=== PATIENT | male | born 1995 | race Caucasian/White ===

== ENCOUNTER 2017-07-09 19:51 | Emergency (ER) | payer OTHER ==
[2017-07-09 19:59] VITALS: BP 134/81; PULSE 92; TEMP 98.3; BMI 40.1
[2017-07-09] MEDS ORDERED: DIPHTH,PERTUSS(ACELL),TET 0.5 ML DISP.SYRIN IM ONE (21:47)
[2017-07-09] MEDS ORDERED: CIPROFLOXACIN 500 MG TABLET (RESTRICTED TO ID) PO ONE (21:48)
[2017-07-09] MEDS ORDERED: IBUPROFEN 400 MG TABLET (FP) PO ONE ×2 (21:49→21:52)
--- NOTE | 2017-07-09 22:15 | PDOC ---
History of Present Illness - General Chief Complaint: Puncture Wound Stated Complaint: FOOT INJRUY Time Seen by Provider: 07/09/17 21:10 - History of Present Illness Initial Comments: 07/09/17 21:50 CHIEF COMPLAINT: HISTORY OF PRESENT ILLNESS: 21 yo M with no PMH presents to fast track with puncture wound to L foot. Patient states he was moving something heavy with his friend when his slipped fell off his foot and he stepped onto a screw "with a bolt on it." Patient states the incident happened about an hour prior to arrival and that No recent travel or sick contacts. PAST MEDICAL HISTORY: Denies past medical history FAMILY HISTORY: Denies SOCIAL HISTORY: Denies tobacco, alcohol, illicit drug use. SURGICAL HISTORY: Denies ALLERGIES: No known drug allergies REVIEW OF SYSTEMS General/Constitutional: Denies fever or chills. Denies weakness, weight change. HEENT: Denies change in vision. Denies ear pain or discharge. Denies sore throat. Cardiovascular: Denies chest pain or shortness of breath. Respiratory: Denies cough, wheezing, or hemoptysis. Gastrointestinal: Denies nausea, vomiting, diarrhea or constipation. Denies rectal bleeding. Genitourinary: Denies dysuria, frequency, or change in urination. Musculoskeletal: Denies joint or muscle swelling or pain. Denies neck or back pain. Skin and breasts: "I stepped on a screw." PHYSICAL EXAM General Appearance: Well-appearing, appropriately dressed. No apparent distress , no intoxication. HEENT: EOMI, PERRLA, normal ENT inspection, normal voice, TMs normal, pharynx normal. No conjunctival pallor. No photophobia, scleral icterus. Neck: Supple. Trachea midline. No tenderness, rigidity, carotid bruit, stridor , lymphadenopathy, or thyromegaly. Respiratory/Chest: Lungs CTAB. No shortness of breath, chest tenderness, respiratory distress, accessory muscle use. No crackles, rales, rhonchi, stridor , wheezing, dullness Cardiovascular: RRR. S1, S2. No JVD, murmur, bradycardia, tachycardia. Vascular Pulses: Dorsalis-Pedis (R): 2+, Dorsalis-Pedis (L): 2+ Gastrointestinal/Abdominal: Normal bowel sounds. Abdomen soft, non-distended. No tenderness or rebound tenderness. No organomegaly, pulsatile mass, guarding , hernia, hepatomegaly, splenomegaly. Lymphatic: No adenopathy, tenderness. Musculoskeletal/Extremities: Normal inspection. FROM of all extremities, normal capillary refill. Pelvis Stable. No CVA tenderness. No tenderness to extremities, pedal edema, swelling, erythema or deformity. Integumentary: PUncture wound to left heel. Appropriate color, dry, warm. No cyanosis, erythema, jaundice or rash Neurologic: chairperson anesthesiology II-XII intact. Fully oriented, alert. Appropriate mood/affect. Motor strength 5/5. No appreciable EOM palsy, facial droop or sensory deficit. Past History - Past Medical History Allergies/Adverse Reactions: Allergies Allergy/AdvReac Type Severity Reaction Status Date / Time No Known Allergies Allergy Verified 07/09/17 19:59 Home Medications: Ambulatory Orders Ciprofloxacin [Cipro (Restricted To Id)] 250 mg PO Q12H #20 tablet 07/09/17 Ciprofloxacin [Cipro (Restricted To Id)] 500 mg PO Q12H #20 tablet 07/09/17 - Psycho/Social/Smoking Cessation Hx Suicidal Ideation: No Smoking History: Current every day smoker Have you smoked in the past 12 months: No Number of Cigarettes Smoked Daily: 5 Information on smoking cessation initiated: No Hx Alcohol Use: No Drug/Substance Use Hx: No *Physical Exam - Vital Signs Last Vital Signs Temp Pulse Resp BP Pulse Ox 98.3 F 92 H 18 134/81 100 07/09/17 19:57 07/09/17 19:57 07/09/17 19:57 07/09/17 19:57 07/09/17 19:57 ED Treatment Course - RADIOLOGY Radiology Studies Ordered: Category Date Time Status FOOT-LEFT [RAD] Stat Radiology 07/09/17 21:20 Taken Medical Decision Making - Medical Decision Making 07/09/17 22:15 21 yo M with no PMH presents to fast track with puncture wound to L foot. -X-ray left foot r/o foreign body -TDap IM -Cipro 500 mg po X-ray negative for foreign body Cipro rx sent to pharm Irrigated puncture wound with high pressure saline. Covered with xeroform dressing and kerlix gauze. Advised patient to take medications as prescribed and of signs and symptoms for return to ER; patient verbalized understanding and agrees to plan. 07/09/17 22:21 *DC/Admit/Observation/Transfer Diagnosis at time of Disposition: Puncture wound of foot Qualifiers: Encounter type: initial encounter Laterality: left Qualified Code(s): S91.332A - Puncture wound without foreign body, left foot, initial encounter - Discharge Dispostion Condition at time of disposition: Fair Admit: No - Prescriptions Prescriptions: Ciprofloxacin [Cipro (Restricted To Id)] 250 mg PO Q12H #20 tablet Ciprofloxacin [Cipro (Restricted To Id)] 500 mg PO Q12H #20 tablet - Referrals Referrals: Annie Weir MD [Primary Care Provider] - - Patient Instructions Printed Discharge Instructions: DI for Puncture Wound Additional Instructions: Please take medications as prescribed. Follow up with your primary care doctor by the end of next week. If you develop redness, swelling, warmth, or pain to the site of your injury, or you develop fever, chills, nausea, vomiting, or diarrhea, please return to the ER.
== END 2017-07-09 22:21 | disposition left against medical advice (07) ==
LOC: JERFT 19:51 → SUPCPDRO 19:51 → JERFT 22:21
DX: Z53.21 Procedure and treatment not carried out due to patient leaving prior to being seen by health care provider (principal)
CPT/HCPCS: 73630-TC-LT; 90715; 99281-25

== ENCOUNTER 2017-07-10 18:32 | Emergency (ER) | payer SELFPAY ==
[2017-07-10 18:46] VITALS: BP 124/75; PULSE 81; TEMP 98.6; BMI 40.1
== END 2017-07-10 20:18 | disposition left against medical advice (07) ==
LOC: JERFT 18:32
DX: Z53.21 Procedure and treatment not carried out due to patient leaving prior to being seen by health care provider (principal)
CPT/HCPCS: 99281-25

== ENCOUNTER 2019-09-04 16:00 | Emergency (ER) | payer OTHER ==
[2019-09-04] MEDS ORDERED: KETOROLAC TROMETHAMINE 60 MG/2 ML VIAL IM ONE (16:04)
--- NOTE | 2019-09-04 16:04 | PDOC ---
Rapid Medical Evaluation Time Seen by Provider: 09/04/19 16:02 Medical Evaluation: Allergies Allergy/AdvReac Type Severity Reaction Status Date / Time No Known Allergies Allergy Verified 07/10/17 18:46 09/04/19 16:02 CC: acute on chronic back pain PE: no focal findings Orders: Toradol Patient will proceed to ED for continued evaluation. Discharge Disposition - Diagnosis Chronic back pain greater than 3 months duration - Referrals - Patient Instructions - Post Discharge Activity
[2019-09-04 16:06] VITALS: BP 118/73; PULSE 85; TEMP 97.9; BMI 40.6
[2019-09-04] MEDS ORDERED: KETOROLAC TROMETHAMINE 60 MG/2 ML VIAL ONE (16:17)
--- NOTE | 2019-09-04 16:34 | PDOC ---
History of Present Illness - General Chief Complaint: Chronic pain Stated Complaint: BACK PAIN Time Seen by Provider: 09/04/19 16:02 - History of Present Illness Initial Comments: 09/04/19 16:32 23-year-old male without comorbidities chronic low back pain presents for evaluation of low back pain recently exacerbated over the last few days without any precipitating traumatic event radicular symptoms or systemic symptoms. Past History - Past Medical History Allergies/Adverse Reactions: Allergies Allergy/AdvReac Type Severity Reaction Status Date / Time No Known Allergies Allergy Verified 07/10/17 18:46 Home Medications: Ambulatory Orders Ciprofloxacin [Cipro (Restricted To Id)] 250 mg PO Q12H #20 tablet 07/09/17 Ciprofloxacin [Cipro (Restricted To Id)] 500 mg PO Q12H #20 tablet 07/09/17 Cyclobenzaprine HCl [Flexeril 10 mg] 10 mg PO HS PRN #10 tablet 09/04/19 Ibuprofen [Motrin -] 600 mg PO TID #30 tablet 09/04/19 COPD: No - Immunization History Immunization Up to Date: No - Psycho Social/Smoking Cessation Hx Smoking History: Never smoked Have you smoked in the past 12 months: No Number of Cigarettes Smoked Daily: 5 Information on smoking cessation initiated: No Hx Alcohol Use: No Drug/Substance Use Hx: No Substance Use Type: None Review of Systems - Review of Systems Musculoskeletal: Yes: Back Pain *Physical Exam - Vital Signs Last Vital Signs Temp Pulse Resp BP Pulse Ox 97.9 F 85 18 118/73 98 09/04/19 16:03 09/04/19 16:03 09/04/19 16:03 09/04/19 16:03 09/04/19 16:03 - Physical Exam Comments: 09/04/19 16:32 Lumbar spine skin color and temperature are normal. There is full nonpainful range of motion. 5 out of 5 strength in bilateral lower extremities. Straight leg raise test is negative bilaterally. Thighs and calves are soft and nontender. There are no gross sensory motor deficits. Neurovascularly intact. Mild left-sided paralumbar musculature tenderness no palpable spasm ED Treatment Course - Medications Given in the ED: ED Medications Discontinued Medications Generic Name Dose Route Start Last Admin Trade Name Freq PRN Reason Stop Dose Admin Ketorolac Tromethamine 60 mg 09/04/19 16:04 09/04/19 16:19 Toradol Injection - IM 09/04/19 16:05 60 mg ONCE ONE Administration Medical Decision Making - Medical Decision Making 09/04/19 16:33 Flexeril and Motrin follow-up with neurosurgery Discharge - Discharge Information Problems reviewed: Yes Clinical Impression/Diagnosis: Chronic back pain greater than 3 months duration Condition: Improved Disposition: HOME - Admission No - Follow up/Referral Referrals: Erik Childress MD [Staff Physician] - - Patient Discharge Instructions Additional Instructions: Please take the Motrin and Flexeril as directed. Return to the emergency room for worsening symptoms. Without fail please follow-up with neurosurgery in 1 to 2 days for further evaluation and treatment options. - Post Discharge Activity Work/Back to School Note: Back to Work
== END 2019-09-04 16:54 | disposition home or self-care (01) ==
LOC: JERFT 16:00
PROC: 3E0233Z Introduction of Anti-inflammatory into Muscle, Percutaneous Approach (ICD-10-PCS; principal; 2019-09-04)
DX: M54.5 Low back pain (principal); G89.29 Other chronic pain
CPT/HCPCS: 96372; 99282-25

== ENCOUNTER 2020-01-23 18:01 | Emergency (ER) | payer OTHER ==
[2020-01-23 18:10] VITALS: BP 125/79; PULSE 75; TEMP 98; BMI 38.7
--- NOTE | 2020-01-23 19:22 | PDOC ---
History of Present Illness - General Chief Complaint: Toothache Stated Complaint: TOOTHACHE Time Seen by Provider: 01/23/20 19:02 History Source: Patient Exam Limitations: No Limitations Past History - Travel Traveled outside of the country in the last 30 days: No Close contact w/someone who was outside of country & ill: No - Past Medical History Allergies/Adverse Reactions: Allergies Allergy/AdvReac Type Severity Reaction Status Date / Time No Known Allergies Allergy Verified 01/23/20 18:06 Home Medications: Ambulatory Orders Oxycodone HCl/Acetaminophen [Percocet 5-325 mg Tablet] 1 tab PO Q8H #10 tablet MDD 3 01/23/20 COPD: No - Immunization History Immunization Up to Date: No - Psycho Social/Smoking Cessation Hx Smoking History: Smoker current status UNK Have you smoked in the past 12 months: No Number of Cigarettes Smoked Daily: 5 Hx Alcohol Use: No Drug/Substance Use Hx: No Substance Use Type: None Review of Systems - Review of Systems Able to Perform ROS?: Yes Comments:: 01/23/20 19:18 CONSTITUTIONAL: Absent: fever, chills, diaphoresis, generalized weakness, malaise, loss of appetite HEENT: Present: Dental pain absent: rhinorrhea, nasal congestion, throat pain, throat swelling, difficulty swallowing, mouth swelling, ear pain, eye pain, visual Changes CARDIOVASCULAR: Absent: chest pain, loss of consciousness, palpitations, irregular heart rate, peripheral edema RESPIRATORY: Absent: cough, shortness of breath, dyspnea with exertion, orthopnea, wheezing, stridor, hemoptysis GASTROINTESTINAL: SKIN: Absent: rash, itching, pallor NEUROLOGIC: Absent: headache, focal weakness or paresthesias, dizziness, unsteady gait, seizure, mental status changes, bladder or bowel incontinence PSYCHIATRIC: Absent: anxiety, depression, suicidal or homicidal ideation, hallucinations. Is the patient limited Indonesian proficient: No *Physical Exam - Vital Signs Last Vital Signs Temp Pulse Resp BP Pulse Ox 98 F 75 18 125/79 98 01/23/20 18:07 01/23/20 18:07 01/23/20 18:07 01/23/20 18:07 01/23/20 18:07 - Physical Exam 01/23/20 19:18 GENERAL: The patient is awake, alert, and fully oriented, in no acute distress. HEAD: Normal with no signs of trauma. EYES: Pupils equal, round and reactive to light, extraocular movements intact, sclera anicteric, conjunctiva clear. MOUTH: Tooth #2 is cracked with surrounding erythema. No obvious abscess or signs of infection. EXTREMITIES: Normal range of motion, no edema. NEUROLOGICAL: Normal speech, normal gait. PSYCH: Normal mood, normal affect SKIN: Warm, Dry, normal turgor, no rashes or lesions noted. Medical Decision Making - Medical Decision Making 01/23/20 19:22 The patient is a 24-year-old male no past medical history presents to the ER with 1 day of tooth pain. He states he cracked his back molar last night. He saw his dentist today who put him on amoxicillin and ibuprofen but he states he still having breakthrough pain. He states that the is causing him a headache. Denies fevers, chills, sore throat, nausea, vomiting, diarrhea. A/P: Dental pain On exam patient has a cracked tooth, #2 for her the dental chart. Given that the patient was just placed on ibuprofen and the dentist concern for infection will defer injection at this time. 1 Percocet given in the ER for pain. We will send a prescription to the patient's pharmacy for Percocet as well. I stop was consulted. No concerning prescriptions. Reference number: [id number] Spoke with patient's mother, states that she already made him another appointment to see the dentist tomorrow. Discharge home I discussed the physical exam findings, ancillary test results and final diagnoses with the patient. I answered all of the patient's questions. The patient was satisfied with the care received and felt comfortable with the discharge plan and treatment plan. The Patient agrees to follow up with the primary care physician/specialist within 24-72 hours. Return precautions were given. Discharge - Discharge Information Problems reviewed: Yes Clinical Impression/Diagnosis: Pain, dental Condition: Stable Disposition: HOME - Admission No - Additional Discharge Information Prescription Drug Monitoring Program (I-STOP) results: I-STOP reviewed and no issues identified (Reference #: [id number]) - Follow up/Referral Referrals: Howard Lund MD [Primary Care Provider] - - Patient Discharge Instructions Patient Printed Discharge Instructions: DI for Dental Pain Additional Instructions: You were evaluated for your dental pain today. Please take your ibuprofen as directed. Please continue your antibiotics as directed from your dentist. You may take a Percocet as needed for breakthrough pain every [address] drink or drive after taking the Percocet as it may make you drowsy. Follow-up with your dentist tomorrow. Return to the ER for worsening pain, headache or if you have any changes in your symptoms. - Post Discharge Activity Work/Back to School Note: Back to Work
== END 2020-01-23 19:39 | disposition home or self-care (01) ==
LOC: JERFT 18:01
DX: K08.89 Other specified disorders of teeth and supporting structures (principal)
CPT/HCPCS: 99283-25

== ENCOUNTER 2020-06-09 14:06 | Emergency (ER) | payer OTHER ==
[2020-06-09] MEDS ORDERED: IBUPROFEN 600 MG TABLET (FP) PO ONE ×2 (14:10→14:27)
--- NOTE | 2020-06-09 14:11 | PDOC ---
Rapid Medical Evaluation Chief Complaint: Injury Time Seen by Provider: 06/09/20 14:09 Medical Evaluation: Allergies Allergy/AdvReac Type Severity Reaction Status Date / Time No Known Allergies Allergy Verified 06/09/20 14:08 06/09/20 14:09 Pt presents for L 1st toe pain after injuring it jumping on a trampoline yesterday. No numbness or tingling Exam: Swelling to the L 1st toe Orders: x-ray, motrin Pt to proceed to the ER for further evaluation Discharge Disposition - Diagnosis Foot pain Qualifiers: Laterality: left Qualified Code(s): M79.672 - Pain in left foot - Referrals - Patient Instructions - Post Discharge Activity
[2020-06-09 14:12] VITALS: BP 129/94; PULSE 96; TEMP 97.8; BMI 40.1
--- NOTE | 2020-06-09 14:39 | PDOC ---
History of Present Illness - General Chief Complaint: Injury Stated Complaint: INJURY Time Seen by Provider: 06/09/20 14:09 History Source: Patient Exam Limitations: No Limitations - History of Present Illness Initial Comments: 06/09/20 14:34 Patient is a 24-year-old male who presents to the ED with complaint of a left foot injury that after banging the medial aspect of his foot on the metal part of a trampoline yesterday. He states this happened yesterday morning. He has been walking on it but with difficulty. He denies any numbness or tingling. He denies any past medical history or allergies to medications. Past History - Medical History Allergies/Adverse Reactions: Allergies Allergy/AdvReac Type Severity Reaction Status Date / Time No Known Allergies Allergy Verified 06/09/20 14:08 Home Medications: Ambulatory Orders Oxycodone HCl/Acetaminophen [Percocet 5-325 mg Tablet] 1 tab PO Q8H #10 tablet MDD 3 01/23/20 COPD: No - Immunization History Immunization Up to Date: No - Psycho-Social/Smoking History Smoking History: Never smoked Have you smoked in the past 12 months: No Number of Cigarettes Smoked Daily: 5 Information on smoking cessation initiated: No - Substance Abuse Hx (Audit-C & DAST Scrn) How often the patient has a drink containing alcohol: Never Score: In Men: 4 or > Positive; In Women: 3 or > Positive: 0 Screen Result (Pos requires Nsg. Audit-10AR): Negative In the last yr the pt used illegal drug/Rx for NonMed reason: No Score: Yes response is considered Positive: 0 Screen Result (Positive result requires Nsg. DAST-10): Negative Review of Systems - Review of Systems Comments:: 06/09/20 14:35 - Review of Systems Able to Perform ROS?: Yes Constitutional: No: Fever, Chills, Loss of Appetite, Night Sweats, Weakness HEENTM: No: Eye Pain, Vision changes, Ear Pain, Throat Pain, Throat Swelling, Mouth Pain, Difficulty Swallowing Respiratory: No: Cough, Shortness of Breath, Wheezing, Sputum Production Cardiac (ROS): No: Chest Pain, Chest Tightness, Palpitations, Irregular Heart Beat, Edema ABD/GI: No: Nausea, Vomiting, Abdominal Pain, Diarrhea : No Dysuria, No Hematuria, No Frequency, No Urgency Musculoskeletal: No: Muscle Pain, Back Pain, Muscle Weakness, Neck Pain; positive: Left foot pain. Integumentary: No: Lesions, Rash Neurological: No: Headache, Numbness, Tingling, Weakness, Speech Difficulties *Physical Exam - Vital Signs Last Vital Signs Temp Pulse Resp BP Pulse Ox 97.8 F 96 H 17 129/94 99 06/09/20 14:08 06/09/20 14:08 06/09/20 14:08 06/09/20 14:08 06/09/20 14:08 - Physical Exam 06/09/20 14:35 - Physical Exam General Appearance: Nourished, Appropriately Dressed, No Distress HEENT: EOMI, Normal Voice, Hearing Grossly Normal Neck: Supple, No Lymphadenopathy (R), No Lymphadenopathy (L), No Rigidity, No Decreased range of motion Respiratory/Chest: Lungs Clear, Normal Breath Sounds. No Respiratory Distress, No Accessory Muscle Use Cardiovascular: Regular Rhythm, Regular Rate, S1, S2 Gastrointestinal/Abdominal: Normal Bowel Sounds, Soft. Non-tender, No Guarding, No Rebound, No Rigidity Musculoskeletal: Normal Inspection. No Decreased Range of Motion; left foot with tenderness at the first MTP to palpation. There is mild reddish ecchymosis to the medial aspect of the foot at the first MTP. Full range of motion of all toes. Sensation intact distally. Brisk capillary refill distally. DP and PT pulses palpable. Extremity: Normal Capillary Refill, Normal Inspection Integumentary: Normal Color, Dry. No Rash Neurologic: medical clerk II-XII NML intact, Fully Oriented, Alert, Normal Mood/Affect, Normal Response ED Treatment Course - Medications Given in the ED: ED Medications Discontinued Medications Generic Name Dose Route Start Last Admin Trade Name Freq PRN Reason Stop Dose Admin Ibuprofen 600 mg 06/09/20 14:10 06/09/20 14:28 Motrin - PO 06/09/20 14:11 600 mg ONCE ONE Administration Medical Decision Making - Medical Decision Making 06/09/20 14:36 Assessment: Patient is a 24-year-old male with a left foot injury that he sustained yesterday while jumping on a trampoline Plan: -Left foot x-ray read by Dr. Tijerina which is negative for any acute foot pat hology -Albert wrap applied to the left foot -Patient can weight-bear as tolerated -Advised NSAIDs, rest, ice and elevation -Patient to follow-up with Ortho and referral given -He understands and agrees with this treatment plan he is stable for discharge. Discharge - Discharge Information Problems reviewed: Yes Clinical Impression/Diagnosis: Foot pain Qualifiers: Laterality: left Qualified Code(s): M79.672 - Pain in left foot Contusion of left foot Qualifiers: Encounter type: initial encounter Qualified Code(s): S90.32XA - Contusion of left foot, initial encounter Condition: Stable Disposition: HOME - Follow up/Referral Referrals: Romero Robbins MD [Staff Physician] - 1 week - Patient Discharge Instructions Patient Printed Discharge Instructions: DI for Foot Pain Additional Instructions: Ice and elevate your left foot. Take ibuprofen (Motrin) as needed for pain but be sure to take with food and follow the bottle instructions. You can weight- bear as tolerated. Follow-up with orthopedics as needed within the next 1 week for further evaluation and treatment. - Post Discharge Activity
== END 2020-06-09 15:23 | disposition home or self-care (01) ==
LOC: JERFT 14:06
DX: M79.672 Pain in left foot (principal); S90.32XA Contusion of left foot, initial encounter
CPT/HCPCS: 73630-TC-LT; 99284-25

== ENCOUNTER 2022-08-29 20:56 | Emergency (ER) | payer OTHER ==
[2022-08-29 21:11] VITALS: BP 138/85; PULSE 84; RESP 18; TEMP 97.8; BMI 43.0
[2022-08-29] MEDS ORDERED: IBUPROFEN 600 MG TABLET (FP) PO ONE ×2 (21:22→21:33)
[2022-08-29] MEDS ORDERED: PENICILLIN V POTASSIUM 500 MG TABLET PO ONE (21:23)
[2022-08-29] MEDS ORDERED: AMOXICILLIN 500 MG CAPSULE (FP) PO ONE (21:27)
[2022-08-29] MEDS ORDERED: AMOXICILLIN 250 MG CAPSULE ONE (21:33)
== END 2022-08-29 21:36 | disposition home or self-care (01) ==
LOC: JERFT 20:56
DX: K08.89 Other specified disorders of teeth and supporting structures (principal); Z11.52 Encounter for screening for COVID-19
CPT/HCPCS: 0241U-QW; 99283-25